=== PATIENT | female | born 1995 | race Caucasian/White ===

== ENCOUNTER 2024-03-07 13:48 | Outpatient (REF) | payer OTHER, SELFPAY ==
--- NOTE | 2024-03-07 11:15 | TONG_PTH ---
PATIENT: Ramona Lau LOC: N U#:[id number] AGE/SX: 29/F ROOM: RE03/07/[address]: Red Aguirre MD : 1995 BED: DIS: 03/07/2024 SPEC #: [id number] RECD: 03/07/24 13:50 STATUS: ZIGGY REStefani #: [id number] BRITTANY: 03/07/24 11:[address]: Red Aguirre DEPT: Surgical Specimen RECD BY: Adriane Quick ENTERED: 03/07/24 13:51 SP TYPE: NATASHA BRYANT DR: ZAYNAB HULL Tissues: TONGUE BIOPSY Procedures: GROSS AND MICRO LEVEL 4 Comments: [id number]
== END 2024-03-07 13:49 | disposition home or self-care (01) ==
LOC: LBN 13:48
PROVIDERS: PCP Nurse Practitioner Primary Care; Referring Provider Nurse Practitioner Primary Care; Visit Provider Otolaryngology
DX: K14.0 Glossitis (principal)
CPT/HCPCS: 88305